=== PATIENT | female | born 1990 | race Caucasian/White ===

== ENCOUNTER 2021-08-27 17:51 | Emergency (ER) | payer OTHER ==
[2021-08-27] MEDS ORDERED: ACETAMINOPHEN 325 MG TABLET (FP) PO ONE (18:14)
[2021-08-27 18:23] VITALS: BP 117/73; PULSE 65; TEMP 97.6; BMI 23.5
[2021-08-27] MEDS ORDERED: CYCLOBENZAPRINE HCL 5 MG TABLET PO ONE (18:43)
[2021-08-27] MEDS ORDERED: LIDOCAINE 5% TOPICAL PATCH TP ONE (18:43)
[2021-08-27] MEDS ORDERED: ACETAMINOPHEN 325 MG TABLET (FP) ONE (19:11)
[2021-08-27] MEDS ORDERED: CYCLOBENZAPRINE HCL 10 MG TABLET (FP) ONE (19:11)
[2021-08-27] MEDS ORDERED: LIDOCAINE 5% TOPICAL PATCH ONE (19:11)
== END 2021-08-27 20:28 | disposition home or self-care (01) ==
LOC: JER 17:51
DX: M54.2 Cervicalgia (principal); S16.1XXA Strain of muscle, fascia and tendon at neck level, initial encounter; V49.50XA Passenger injured in collision with unspecified motor vehicles in traffic accident, initial encounter
CPT/HCPCS: 70450-TC; 72125-TC; 99284-25